=== PATIENT | male | born 1980 | race Caucasian/White ===

== ENCOUNTER 2025-01-08 10:17 | Emergency (ER) | payer BC, SELFPAY ==
[2025-01-08] VITALS (10 sets, daily range): BP systolic 133–166; BP diastolic 86–94; PULSE 88–111; RESP 13–22; TEMP 36.8; O2SAT 95–100
--- NOTE | ~2025-01-08 | XR_ITS ---
EXAMINATION: XR chest 2V 01/08/2025 11:19 INDICATION: Chest pain PROCEDURE: 2 view chest COMPARISON: No prior studies for comparison. FINDINGS: The lungs are clear. The cardiomediastinal silhouette is within normal limits. There are no pleural effusions. There is no pneumothorax suspected. IMPRESSION: 1: NO ACUTE CARDIOPULMONARY DISEASE. Reviewed, dictated and finalized at location A.
--- NOTE | 2025-01-08 10:20 | ECG_ITS ---
Test Date: 2025-01-08 10:29:52 Measurements Intervals [place] Rate: 102 P: 55 [place]: 150 QRS: 69 QRSD: 90 T: 38 QT: 306 QTc: 400 Interpretive Statements SINUS TACHYCARDIA BORDERLINE ECG No previous ECG available for comparison Electronically Signed On 01-08-2025 10:36:48 CDT by Dre Maddox D.O.
--- OUTSIDE RECORDS SUMMARY | 2025-01-08 10:25 | XMS_ITS | Clinical Summary ---
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 Gender Identity Not on file Sexual Orientation Not on file Plan of Treatment Health Maintenance Due Date Last Done Comments Annual Physical 1985 Hepatitis C 2000 DTaP, Tdap and Td Vaccines ( 1 - Tdap) 2001 Hepatitis B Vaccines (1 of 3 - 19+ 3-dose series) 2001 HPV Vaccines (1 - 3-dose SCD M series) 2009 COVID-19 Vaccine ( - 2023-2 5 season) 2024 Meningococcal B Vaccine Aged Out No l onger eligible based on patient's age to complete this topic Meningococcal Vaccine Aged Out No bj malinda eligible based on patient's age to complete this topic Pneumococcal Vaccine: Pediat rics (0 to 5 Years) and At-Risk Patients (6 to 49 Years) Aged Out No longer eligible b ased on patient's age to complete this topic RSV Immunizations Under 20 Months Aged Out No longer eligible based on patient's age to complete this topic
[2025-01-08 10:43] LABS: Hematocrit 48.4 % (42.0-52.0); Hemoglobin 16.3 g/dL (14.0-18.0); Immature Granulocyte Percent A 0.2 % (0-0.5); Lymphocytes Absolute Auto 1.53 K/mm3 (0.9-3.2); Mean Corpuscular HGB Conc 33.7 g/dl (32-36); Mean Corpuscular Hemoglobin 29.5 pg (26-34); Mean Corpuscular Volume 87.7 fl (80-100); Nucleated Red Blood Cells Absolute Auto 0.000 K/mm3 (0.0-0.012); Nucleated Red Blood Cells Perc 0.0 % (0.0-0.2); Platelet Count Result 196 k/mm3 (150-375); Red Blood Count 5.52 M/mm3 (4.6-6.20); White Blood Count 6.1 K/mm3 (4.5-10.0)
[2025-01-08 10:59] LABS: INR 1.0; Prothrombin Time 13.0 Seconds (11.1-14.7)
[2025-01-08 11:00] LABS: Partial Thromboplastin Time 30.2 Seconds (22.3-36.8)
[2025-01-08 11:02] LABS: Alanine Aminotransferase 34 U/L (6-50); Albumin Level 4.5 g/dL (3.5-5.1); Alkaline Phosphatase 81 U/L (38-126); Anion Gap 8 mmol/L (4-12); Aspartate Amino Transferase 33 U/L (17-59); Bilirubin,Total 0.4 mg/dL (0.2-1.3); Blood Urea Nitrogen 14 mg/dL (9-20); Calcium 9.7 mg/dL (8.4-10.2); Carbon Dioxide 24 mmol/L (22-30); Chloride 105 mmol/L (98-107); Estimated CRCL calculation 112 ml/min; Estimated Glomerular Filt Rate > 60; Glucose 108 mg/dL (65-110); Lipase 100 U/L (23-300); Potassium 4.8 mmol/L (3.4-5.0); Sodium 137 mmol/L (137-145); Total Protein 7.9 g/dL (6.3-8.2)
[2025-01-08] MEDS: ASPIRIN 81 MG CHEWABLE TABLET 324 MG PO (11:05)
[2025-01-08] MEDS: Please add drug allergy info to patient profile. 1 EACH XX (11:06)
[2025-01-08 11:13] LABS: Troponin I < 0.012 ng/mL (0.000-0.034)
--- OUTSIDE RECORDS SUMMARY | 2025-01-08 12:30 | XMS_ITS | Clinical Summary ---
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
--- NOTE | 2025-01-08 13:02 | ED_ITS ---
HPI - General Adult General Chief complaint: Chest Pain Stated complaint: chest pain Time Seen by Provider: 01/08/25 12:02 History of Present Illness HPI narrative: 44-year-old male present to the emergency department for evaluation for intermittent left-sided chest pain. Patient states over the last 6 months the patient has had intermittent chest pain that occurs approximately once a month the last 3 days. Patient is unable to describe the pain is worsened with inspiration, movement, cough, exertion. Patient states the pain has been constant since Wednesday. Patient states he does not have any associated increased shortness of breath but feels that he would has been affecting him more this summer. Patient states the pain is on left side of his chest and does not radiate to his neck back or arms. Patient denies any change in the pain with exertion or deep breathing. Patient denies any prior cardiac history. Patient has never had a stress test. Patient denies any prior history of PE or DVT. Patient does not take any hormone replacement, has no lower extremity pain or swelling, denies any recent coughs colds or fevers, denies any recent surgeries. Related Data Allergies Allergy/AdvReac Type Severity Reaction Status Date / Time peanut Allergy Severe Swelling Verified 01/08/25 11:03 of Lip/Tongue/Throat Penicillins Allergy Mild Unknown Verified 01/08/25 11:03 Review of Systems 2 Review of Systems: All systems reviewed & are unremarkable except as noted in HPI and below Exam 2 Narrative: APPEARANCE: Well appearing, no pain, no distress, well-nourished. HEAD: normocephalic, atraumatic. EYES: PERRLA/EOMI, conjunctivae clear. NOSE: Normal no drainage EARS:TMS clear with good light reflex. THROAT: Pharynx clear, no exudate. NECK: Supple. No adenopathy, no masses. RESPIRATORY: Airway patent, respirations nonlabored. Clear to auscultation bilaterally, no rales, rhonchi, wheezing. CARDIOVASCULAR: Regular rate and rhythm without murmurs rubs or gallops. ABDOMINAL: Soft, nontender, nondistended, normal bowel sounds MUSCULOSKELETAL: Moves all extremities. Strength/ROM intact, No edema, No calf tenderness. NEURO: Alert. Cranial nerves II through XII intact. Good gait. Good coordination SKIN: Warm, dry. Normal Color Course Vital Signs Vital signs: Vital Signs Temperature 98.3 F 01/08/25 10:21 Pulse Rate 111 H 01/08/25 10:21 Respiratory Rate 16 01/08/25 10:21 Blood Pressure 166/86 H 01/08/25 10:21 Pulse Oximetry 99 01/08/25 10:21 Oxygen Delivery Room Air 01/08/25 10:21 Temperature 98.3 F 01/08/25 10:21 Pulse Rate 89 01/08/25 15:03 Respiratory Rate 17 01/08/25 15:03 Blood Pressure 144/94 H 01/08/25 15:03 Pulse Oximetry 97 01/08/25 15:03 Oxygen Delivery Room Air 01/08/25 11:01 Medical Decision Making MDM Narrative Medical decision making narrative: 44-year-old male presenting to the emergency department for evaluation for left- sided chest pain has been constant since Wednesday. Patient is currently afebrile with no leukocytosis and hemoglobin of 16.3. Patient has an INR 1.0. Patient has no abnormalities on his CMP patient's initial troponin was negative. Chest x-ray shows no acute cardiopulmonary abnormality. EKG shows sinus tachycardia with a heart rate of 102. Patient was treated with 30 mg of IV Toradol along with 1 L of lactated Ringer's. This did help with the patient's heart rate. Patient is currently afebrile with no leukocytosis hemoglobin of 16.3. Patient's D-dimer was not elevated. Patient's troponins were negative. Lipase is negative. Chest x-ray shows no acute cardiopulmonary abnormality. EKG shows normal sinus rhythm with no evidence of acute infarction. Low concern for ACS, low concern for pulmonary embolism. Chest x-ray was negative for pneumonia. On re-evaluation Differential Diagnosis Differential Diagnosis: ACS, pleurisy, pneumonia, pneumothorax, pulmonary embolism Vital Signs Vital Signs: Vital Signs Temperature 98.3 F 01/08/25 10:21 Pulse Rate 111 H 01/08/25 10:21 Respiratory Rate 16 01/08/25 10:21 Blood Pressure 166/86 H 01/08/25 10:21 Pulse Oximetry 99 01/08/25 10:21 Oxygen Delivery Room Air 01/08/25 10:21 Temperature 98.3 F 01/08/25 10:21 Pulse Rate 89 01/08/25 15:03 Respiratory Rate 17 01/08/25 15:03 Blood Pressure 144/94 H 01/08/25 15:03 Pulse Oximetry 97 01/08/25 15:03 Oxygen Delivery Room Air 01/08/25 11:01 Lab Data Lab results reviewed: Yes I reviewed the patient's lab results. 01/08/25 10:33 01/08/25 10:33 Labs: Lab Results 01/08/25 01/08/25 Range/Units 10:33 13:30 WBC 6.1 (4.5-10.0) K/mm3 RBC 5.52 (4.6-6.20) M/mm3 Hgb 16.3 (14.0-18.0) g/dL Hct 48.4 (42.0-52.0) % MCV 87.7 (80-100) fl MCH 29.5 (26-34) pg MCHC 33.7 (32-36) g/dl RDW 13.7 (11.5-14.5) % Plt Count 196 (150-375) k/mm3 MPV 9.0 (7.4-10.4) fl Immature Gran % (Auto) 0.2 (0-0.5) % Neut % (Auto) 64.4 (45.5-73.1) % Lymph % (Auto) 24.9 (18.3-44.2) % [place] % (Auto) 7.7 (2.6-8.5) % Eos % (Auto) 2.0 (0-4.4) % Baso % (Auto) 0.8 (0.2-1.2) % Lymph # (Auto) 1.53 (0.9-3.2) K/mm3 [place] # (Auto) 0.5 (0.1-0.6) K/mm3 Eos # (Auto) 0.1 (0-0.3) K/mm3 Baso # (Auto) 0.1 (0.0-0.1) K/mm3 Abs Immat Gran (auto) 0.01 (0.00-0.031) K/mm3 Absolute Neuts (auto) 4.0 (1.3-6.7) K/mm3 Absolute Nucleated RBC 0.000 (0.0-0.012) K/mm3 Nucleated RBC % 0.0 (0.0-0.2) % PT 13.0 (11.1-14.7) Seconds INR 1.0 APTT 30.2 (22.3-36.8) Seconds D-Dimer < 0.27 (<0.48) ug/mL Sodium 137 (137-145) mmol/L Potassium 4.8 (3.4-5.0) mmol/L Chloride 105 (98-107) mmol/L Carbon Dioxide 24 (22-30) mmol/L Anion Gap 8 (4-12) mmol/L BUN 14 (9-20) mg/dL Creatinine 0.89 (0.7-1.3) mg/dL Estim Creat Clear Calc 112 ml/min Estimated GFR > 60 (59 - ) Glucose 108 (65-110) mg/dL Calcium 9.7 (8.4-10.2) mg/dL Total Bilirubin 0.4 (0.2-1.3) mg/dL AST 33 (17-59) U/L ALT 34 (6-50) U/L Alkaline Phosphatase 81 (38-126) U/L Troponin I < 0.012 < 0.012 (0.000-0.034) ng/mL Total Protein 7.9 (6.3-8.2) g/dL Albumin 4.5 (3.5-5.1) g/dL Lipase 100 (23-300) U/L Imaging Data Radiologist's impression: Impressions Chest X-Ray 01/08/25 11:20 IMPRESSION: 1: NO ACUTE CARDIOPULMONARY DISEASE. ECG Data EKG #1: EKG Interpretation: normal rate, sinus rhythm, no ectopy, normal QRS, normal QT and NL axis Discharge Plan Discharge Clinical Impression: Atypical chest pain, Pleuritic chest pain Patient Disposition: Home Condition: Stable Instructions: Antibiotic Form, Chest Pain (ED), Pleurisy (ED) Additional Instructions: Schedule naproxen as directed. Have close follow-up with your primary care physician for additional outpatient cardiac testing. If you have any worsening symptoms then please call or return to the emergency department. Patient Language: Kazakh Prescriptions: New naproxen 500 mg tablet 500 mg PO BID 7 Days Qty: 14 0RF Follow-up/Referrals: PHYSICIAN,DOUGH SCALER AND MIXER [Primary Care Provider] - Paul Boss MD [Physician] - Quality HEART score for chest pain patients History: slightly suspicious ECG: normal Age: < or = to 45 years Risk factors: 1 or 2 risk factors Troponin: < or = to 1x normal limit Heart score: 1
[2025-01-08] MEDS: LACTATED RINGERS 1,000 ML 999 ML IV CONT (13:11)
[2025-01-08] MEDS: KETOROLAC 30 MG/ML VIAL (*BKC) IV PUSH (13:12)
--- NOTE | 2025-01-08 13:39 | ECG_ITS ---
Test Date: 2025-01-08 13:42:24 Measurements Intervals [place] Rate: 77 P: 56 [place]: 152 QRS: 58 QRSD: 94 T: 38 QT: 341 QTc: 388 Interpretive Statements SINUS RHYTHM WITH SINUS ARRHYTHMIA MINIMAL Q WAVES- INFERIOR LEADS BORDERLINE ECG Compared to ECG 01/08/2025 10:29:52 HEART RATE HAS DECREASED Electronically Signed On 01-08-2025 13:45:39 CDT by Dre Maddox D.O.
[2025-01-08 14:05] LABS: Troponin I < 0.012 ng/mL (0.000-0.034)
== END 2025-01-08 15:45 | disposition home or self-care (01) ==
PROVIDERS: Emergency Medicine; Emergency Provider Emergency Medicine
DX: R07.81 Pleurodynia (principal); R07.89 Other chest pain; R00.0 Tachycardia, unspecified
CPT/HCPCS: 36415; 71046; 80053; 83690; 84484; 85025; 85380; 85610; 85730; 93005; 96361; 96374; 99284; A9270; J1885; J7120

== ENCOUNTER 2025-02-02 07:42 | Outpatient (CLI) | payer BC, SELFPAY ==
--- OUTSIDE RECORDS SUMMARY | 2025-02-02 07:45 | XMS_ITS | Clinical Summary ---
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
[2025-02-02 09:53] LABS: Cholesterol 391 mg/dL (0-200); Triglycerides 1084 mg/dL (<150)
== END 2025-02-02 07:43 | disposition home or self-care (01) ==
LOC: ANHLAB 07:43
PROVIDERS: Visit Provider Internal Medicine Cardiovascular Disease
DX: R07.9 Chest pain, unspecified (principal)
CPT/HCPCS: 36415; 80061

== ENCOUNTER 2025-02-15 09:36 | Outpatient (CLI) | payer BC, SELFPAY ==
--- NOTE | 2025-02-15 09:53 | EST_ITS ---
Patient Info Name: Mario Stapleton Age: 44 years : 1980 Gender: Male Ht: 70 in Wt: 200 lbs BSA: 2.14 m2 Exam Date: 02/15/2025 9:53 AM Patient Status: O Admit Date: 02/15/2025 Exam Type: CA stress test treadmill A treadmill exercise stress test was performed. Staff Attending Provider: Dre Maddox DO Exercise Technologist: Letty Sommers Exercise Physician: Dre Maddox DO Summary 1. 1. Negative Shon exercise stress test for ischemic ST changes ECG criteria. 2. 2. Good functional capacity, achieving 12 METs of workload. 3. 3. Appropriate HR response to exercise. 4. 4. Appropriate HR recovery at 1 minute post exercise. 5. 5. No imaging with stress testing. 6. 6. Patient informed of the above results. Protocol: Shon Stress ECG Details Stage: REST Duration (min): 0 min : 52 sec Speed (mph): 0.0 Grade (%): 0 HR (bpm): 65 SBP (mmHg): 132 DBP (mmHg): 90 METS: --- Stage: REST Duration (min): 3 min : 24 sec Speed (mph): 0.0 Grade (%): 0 HR (bpm): 84 SBP (mmHg): 132 DBP (mmHg): 90 METS: --- Stage: STAGE 1 Duration (min): 1 min : 0 sec Speed (mph): 1.7 Grade (%): 10 HR (bpm): 106 SBP (mmHg): 132 DBP (mmHg): 90 METS: --- Stage: STAGE 1 Duration (min): 2 min : 0 sec Speed (mph): 1.7 Grade (%): 10 HR (bpm): 104 SBP (mmHg): 132 DBP (mmHg): 90 METS: --- Stage: STAGE 1 Duration (min): 3 min : 0 sec Speed (mph): 1.7 Grade (%): 10 HR (bpm): 104 SBP (mmHg): 127 DBP (mmHg): 90 METS: --- Stage: STAGE 2 Duration (min): 1 min : 0 sec Speed (mph): 2.5 Grade (%): 12 HR (bpm): 112 SBP (mmHg): 127 DBP (mmHg): 90 METS: --- Stage: STAGE 2 Duration (min): 2 min : 0 sec Speed (mph): 2.5 Grade (%): 12 HR (bpm): 118 SBP (mmHg): 159 DBP (mmHg): 79 METS: --- Stage: STAGE 2 Duration (min): 3 min : 0 sec Speed (mph): 2.5 Grade (%): 12 HR (bpm): 117 SBP (mmHg): 159 DBP (mmHg): 79 METS: --- Stage: STAGE 3 Duration (min): 1 min : 0 sec Speed (mph): 3.4 Grade (%): 14 HR (bpm): 129 SBP (mmHg): 156 DBP (mmHg): 82 METS: --- Stage: STAGE 3 Duration (min): 2 min : 0 sec Speed (mph): 3.4 Grade (%): 14 HR (bpm): 134 SBP (mmHg): 156 DBP (mmHg): 82 METS: --- Stage: STAGE 3 Duration (min): 3 min : 0 sec Speed (mph): 3.4 Grade (%): 14 HR (bpm): 137 SBP (mmHg): 155 DBP (mmHg): 77 METS: --- Stage: STAGE 4 Duration (min): 1 min : 0 sec Speed (mph): 4.2 Grade (%): 16 HR (bpm): 147 SBP (mmHg): 155 DBP (mmHg): 77 METS: --- Stage: STAGE 4 Duration (min): 1 min : 35 sec Speed (mph): 4.2 Grade (%): 16 HR (bpm): 153 SBP (mmHg): 155 DBP (mmHg): 77 METS: --- Stage: RECOVERY Duration (min): 0 min : 24 sec Speed (mph): 0.0 Grade (%): 0 HR (bpm): 140 SBP (mmHg): 189 DBP (mmHg): 66 METS: --- Stage: RECOVERY Duration (min): 1 min : 24 sec Speed (mph): 0.0 Grade (%): 0 HR (bpm): 111 SBP (mmHg): 149 DBP (mmHg): 62 METS: --- Stage: RECOVERY Duration (min): 2 min : 24 sec Speed (mph): 0.0 Grade (%): 0 HR (bpm): 98 SBP (mmHg): 149 DBP (mmHg): 62 METS: --- Stage: RECOVERY Duration (min): 3 min : 24 sec Speed (mph): 0.0 Grade (%): 0 HR (bpm): 94 SBP (mmHg): 151 DBP (mmHg): 79 METS: --- Stage: RECOVERY Duration (min): 4 min : 24 sec Speed (mph): 0.0 Grade (%): 0 HR (bpm): 90 SBP (mmHg): 151 DBP (mmHg): 79 METS: --- Stage: RECOVERY Duration (min): 4 min : 46 sec Speed (mph): 0.0 Grade (%): 0 HR (bpm): 91 SBP (mmHg): 131 DBP (mmHg): 78 METS: --- Rest HR: 84 bpm Peak HR: 153 bpm Rest Sys BP: 132 mmHg Peak Sys BP: 189 mmHg Max Pred HR: 178 bpm % Max Pred HR: 86 % Target HR: 151 bpm Max RPP: 28,917 bpm*mmHg Jensen Score: -0 Termination Reason: Reached target heart rate or workload Cardiac Symptoms: Shortness of breath Max ST Seg Deviation: 2.20 mm Total Time: 10 min : 35 sec Rest Manning BP: 90 mmHg Peak Manning BP: 66 mmHg Angina Score: None Total METS: 12.1 Resting ECG Sinus rhythm. Stress ECG No ST changes. Arrhythmias None. Report Signatures
--- OUTSIDE RECORDS SUMMARY | 2025-02-15 10:05 | XMS_ITS | Clinical Summary ---
Author Organization 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
== END 2025-02-15 09:37 | disposition home or self-care (01) ==
PROVIDERS: Visit Provider Internal Medicine Cardiovascular Disease
DX: R07.9 Chest pain, unspecified (principal)
CPT/HCPCS: 93017